=== PATIENT | male | born 1960 | race Caucasian/White ===

== ENCOUNTER 2017-02-10 01:24 | Emergency (ER) | payer MEDICARE, OTHER ==
[2017-02-10 02:17] LABS: HEMOGLOBIN 14.2 gm/dl (14.0-17.5); RED BLOOD COUNT 5.03 M/UL (4.20-5.50); WHITE BLOOD COUNT 6.5 K/UL (4.5-11.0)
[2017-02-10 02:37] LABS: BUN/CREATININE RATIO 20 (0-10)
== END 2017-02-10 06:00 | disposition home or self-care (01) ==
LOC: ER1 01:24
PROVIDERS: Family Medicine
DX: J18.9 Pneumonia, unspecified organism (principal); J44.9 Chronic obstructive pulmonary disease, unspecified; E11.9 Type 2 diabetes mellitus without complications; E78.5 Hyperlipidemia, unspecified; M10.9 Gout, unspecified; R60.9 Edema, unspecified; R50.9 Fever, unspecified
CPT/HCPCS: 36415; 71010; 80053; 81001; 82550; 82553; 83874; 84484; 85025; 87040; 87070; 87077; 87086; 87205; 93005; 94664; 96374; 99285; J0696; J2930; J7050

== ENCOUNTER 2017-02-28 00:06 | Emergency (ER) | payer MEDICARE, OTHER | END 2017-02-28 07:20 | disposition home or self-care (01) | LOC: ER1 00:06 | DX: S13.4XXA Sprain of ligaments of cervical spine, initial encounter (principal); S86.812A Strain of other muscle(s) and tendon(s) at lower leg level, left leg, initial encounter; S86.811A Strain of other muscle(s) and tendon(s) at lower leg level, right leg, initial encounter; S40.022A Contusion of left upper arm, initial encounter; S40.021A Contusion of right upper arm, initial encounter; W20.8XXA Other cause of strike by thrown, projected or falling object, initial encounter; Y92.69 Other specified industrial and construction area as the place of occurrence of the external cause; Y99.0 Civilian activity done for income or pay | CPT/HCPCS: 36415; 72125; 73060; 73080; 73564; 99284 ==

== ENCOUNTER 2017-03-31 21:55 | Emergency (ER) | payer MEDICARE, OTHER ==
[2017-04-01 02:21] LABS: HEMOGLOBIN 13.4 gm/dl (14.0-17.5); RED BLOOD COUNT 4.67 M/UL (4.20-5.50); WHITE BLOOD COUNT 11.4 K/UL (4.5-11.0)
[2017-04-01 02:51] LABS: BUN/CREATININE RATIO 19 (0-10)
== END 2017-04-01 04:20 | disposition home or self-care (01) ==
LOC: ER1 21:55
PROVIDERS: Family Medicine
DX: M19.032 Primary osteoarthritis, left wrist (principal); E11.9 Type 2 diabetes mellitus without complications; I10 Essential (primary) hypertension; M10.9 Gout, unspecified; Z85.038 Personal history of other malignant neoplasm of large intestine
CPT/HCPCS: 36415; 73090; 73110; 80053; 84550; 85025; 86140; 99283

== ENCOUNTER 2020-11-08 14:12 | Inpatient (IN) | payer MEDICARE ==
[~2020-11-08] VITALS: Ht 175.3 cm; Wt 90.7 kg
[~2020-11-08 14:12] MED LIST: ACTOS45 MG PO; ALENDRONATE SOD10 MG PO; ASPIRIN EC81 MG PO; ATORVASTATIN CA40 MG PO; BACTRIM DS TAB1 EACH PO; BUSPAR 10MG10 MG PO; CRESTOR5 MG PO; CYMBALTA 30 MG30 MG PO; CYMBALTA60 MG PO; GABAPENTIN800 MG PO; GLUCOPHAGE1000 MG PO; HUMALOG MI100 UNIT/3 SC; HYDROCODON-ACE1 EAC6 PO; IMDUR ER TAB 3030 MG PO; JANUVIA100 MG PO; K-DUR TAB 10 M10 MEQ PO; KEFLEX CAP 500500 MG PO; LANTUS100 UNIT/1 SC; LASIX20 MG PO; LASIX40 MG PO; LEXAPRO20 MG PO; LISINOPRIL10 MG PO; LISINOPRIL20 MG PO; METFORMIN HCL1000 MG PO; MIACALCIN NASA3.7 ML; MOBIC15 MG PO; NABUMETONE500 MG PO; NEURONTIN 400400 MG PO; NITROSTAT 0.40.4 MG SL; NORCO 7.5-3251 EACH PO; NORVASC5 MG PO; OMEPRAZOLE20 M1 PO; OZEMPIC0.25 MG/0. SQ; PRAVACHOL40 MG PO; PREDNISONE20 MG PO; PREVACID30 MG PO; PRILOSEC OTC20 MG PO; REVATIO 20 MG T20 MG PO; TESSALON PERLE100 MG PO; TRAZODONE HCL50 MG PO; VITAMIN C500 M1 PO; VITAMIN D31250 MCG PO; XANAX0.25 MG PO; ZESTORETIC 20-1 EAC1 PO; ZESTRIL40 MG PO; ZYLOPRIM 300 M300 MG PO; [UNRECOGNIZED DRUG - OTHER] TOP
[2020-11-08 18:33] LABS: HEMOGLOBIN 13.6 gm/dl (14.0-17.5); RED BLOOD COUNT 4.6 M/UL (4.20-5.50)
[2020-11-08 19:02] LABS: BUN/CREATININE RATIO 27 (0-10)
[2020-11-08] MEDS ORDERED: OMEPRAZOLE20 M1 PO (21:15)
[2020-11-08] MEDS ORDERED: OZEMPIC 2MG/1.5ML (21:19)
[2020-11-08] MEDS ORDERED: QUETIAPINE FUMA50 MG PO (21:22)
[2020-11-08] MEDS ORDERED: PROAIR DIGIHAL90 MCG INH (21:23)
[2020-11-09] MEDS ORDERED: ATORVASTATIN CA20 MG PO (15:44)
== END 2020-11-09 19:07 | disposition home or self-care (01) | DRG 286 ==
LOC: ER1 14:12 → CDU 20:09 → MED SURG 4 20:09 → CDU 20:09 → MED SURG 4 11-09 15:56
PROVIDERS: Physician Assistant; ADMIT Internal Medicine
PROC: B211YZZ Fluoroscopy of Multiple Coronary Arteries using Other Contrast (ICD-10-PCS; principal; 2020-11-09)
PROC: 4A023N7 Measurement of Cardiac Sampling and Pressure, Left Heart, Percutaneous Approach (ICD-10-PCS; principal; 2020-11-09)
DX: I25.110 Atherosclerotic heart disease of native coronary artery with unstable angina pectoris (principal); U07.1 COVID-19; A52.16 Charcot's arthropathy (tabetic); I10 Essential (primary) hypertension; E78.5 Hyperlipidemia, unspecified; E11.9 Type 2 diabetes mellitus without complications; E66.9 Obesity, unspecified; J44.9 Chronic obstructive pulmonary disease, unspecified; M81.0 Age-related osteoporosis without current pathological fracture; I48.0 Paroxysmal atrial fibrillation; Z96.652 Presence of left artificial knee joint; G62.9 Polyneuropathy, unspecified; M10.9 Gout, unspecified; M19.90 Unspecified osteoarthritis, unspecified site; G25.81 Restless legs syndrome; Z79.4 Long term (current) use of insulin; Z79.899 Other long term (current) drug therapy; Z86.73 Personal history of transient ischemic attack (TIA), and cerebral infarction without residual deficits; Z90.49 Acquired absence of other specified parts of digestive tract; Z85.038 Personal history of other malignant neoplasm of large intestine; Z87.891 Personal history of nicotine dependence
CPT/HCPCS: 71045; 80053; 81001; 82550; 82553; 82962; 83874; 84484; 85025; 87086; 87635; 93005; 94760; 99152; 99285; C1769; C1894; G0378; J1644; J2250; J3010; Q9967; U0003

== ENCOUNTER 2020-12-01 15:51 | Emergency (ER) | payer MEDICARE, OTHER ==
[~2020-12-01 15:51] MED LIST changes: +ATORVASTATIN CA20 MG PO; +OZEMPIC 2MG/1.5ML; +PROAIR DIGIHAL90 MCG INH; +QUETIAPINE FUMA50 MG PO
[2020-12-01] MEDS ORDERED: NORFLEX 100 MG100 MG PO (19:42)
[2020-12-01] MEDS ORDERED: VOLTAREN100 GM TP (19:42)
== END 2020-12-01 19:45 | disposition home or self-care (01) ==
LOC: ER1 15:51
DX: S39.012A Strain of muscle, fascia and tendon of lower back, initial encounter (principal); G89.29 Other chronic pain; M51.36 Other intervertebral disc degeneration, lumbar region; M51.26 Other intervertebral disc displacement, lumbar region; M48.061 Spinal stenosis, lumbar region without neurogenic claudication; I10 Essential (primary) hypertension; E11.9 Type 2 diabetes mellitus without complications; Z85.038 Personal history of other malignant neoplasm of large intestine; Z90.49 Acquired absence of other specified parts of digestive tract; X50.9XXA Other and unspecified overexertion or strenuous movements or postures, initial encounter
CPT/HCPCS: 72131; 96372; 99283; J1885; J2930

== ENCOUNTER 2020-12-30 07:10 | Emergency (ER) | payer MEDICARE, OTHER ==
[~2020-12-30 07:10] MED LIST changes: +NORFLEX 100 MG100 MG PO; +VOLTAREN100 GM TP
[2020-12-30] MEDS ORDERED: HYDROCODON-ACE1 EAC4 PO (10:28)
== END 2020-12-30 11:10 | disposition home or self-care (01) ==
LOC: ER1 07:10
DX: S13.4XXA Sprain of ligaments of cervical spine, initial encounter (principal); E04.1 Nontoxic single thyroid nodule; F17.200 Nicotine dependence, unspecified, uncomplicated; Z90.49 Acquired absence of other specified parts of digestive tract; W00.0XXA Fall on same level due to ice and snow, initial encounter
CPT/HCPCS: 29105; 71046; 72125; 73030; 73080; 73110; 99284

== ENCOUNTER → 2021-01-09 | Outpatient (CLI) | payer MEDICARE, OTHER ==
[~2021-01-09] MED LIST changes: +CLEOCIN HCL300 MG PO; +ENDOCET 10-3251 EACH PO; +HYDROCODON-ACE1 EAC4 PO; +PERCOCET 5/325 T1 EA PO
== END ==
LOC: KOH-I 15:59
DX: M14.671 Charcot's joint, right ankle and foot (principal); M14.672 Charcot's joint, left ankle and foot; M19.072 Primary osteoarthritis, left ankle and foot; M19.071 Primary osteoarthritis, right ankle and foot
CPT/HCPCS: 73610; 73630

== ENCOUNTER → 2021-01-17 | Outpatient (CLI) | payer MEDICARE, OTHER | LOC: KOH-I 10:06 | DX: Z01.818 Encounter for other preprocedural examination (principal) | CPT/HCPCS: 93925 ==

== ENCOUNTER → 2021-01-18 | Outpatient (CLI) | payer MEDICARE, OTHER | LOC: OPSV2 10:30 | DX: Z01.812 Encounter for preprocedural laboratory examination (principal); U07.1 COVID-19 ==

== ENCOUNTER 2021-01-20 07:35 | Day surgery (SDC) | payer MEDICARE, OTHER ==
[~2021-01-20] VITALS: Ht 175.3 cm; Wt 90.7 kg
[~2021-01-20 07:35] MED LIST changes: -CLEOCIN HCL300 MG PO; -ENDOCET 10-3251 EACH PO; -PERCOCET 5/325 T1 EA PO
[2021-01-20 08:27] LABS: RED BLOOD COUNT 4.97 M/UL (4.20-5.50); WHITE BLOOD COUNT 6.4 K/UL (4.5-11.0)
[2021-01-20 08:43] LABS: BUN/CREATININE RATIO 14 (0-10)
[2021-01-21] MEDS ORDERED: PERCOCET 5/325 T1 EA PO (10:06)
[2021-01-21] MEDS ORDERED: ENDOCET 10-3251 EACH PO (10:08)
[2021-01-21] MEDS ORDERED: CLEOCIN HCL300 MG PO (10:13)
== END 2021-01-21 18:02 | disposition home or self-care (01) ==
LOC: OR 07:35 → MED SURG 4 07:35 → OR 07:45 → MED SURG 4 17:31 → OR 01-21 18:02
PROVIDERS: Podiatrist Foot & Ankle Surgery
DX: M20.41 Other hammer toe(s) (acquired), right foot (principal); E11.610 Type 2 diabetes mellitus with diabetic neuropathic arthropathy; E11.621 Type 2 diabetes mellitus with foot ulcer; I25.10 Atherosclerotic heart disease of native coronary artery without angina pectoris; K21.9 Gastro-esophageal reflux disease without esophagitis; G89.4 Chronic pain syndrome; F41.9 Anxiety disorder, unspecified; F17.210 Nicotine dependence, cigarettes, uncomplicated; I10 Essential (primary) hypertension; J44.9 Chronic obstructive pulmonary disease, unspecified; U07.1 COVID-19; E78.5 Hyperlipidemia, unspecified; Z90.49 Acquired absence of other specified parts of digestive tract; Z79.899 Other long term (current) drug therapy; Z83.6 Family history of other diseases of the respiratory system; Z80.0 Family history of malignant neoplasm of digestive organs
CPT/HCPCS: 36415; 73620; 73630; 76000; 80048; 82962; 85027; C1713; C1769; J0690; J1885; J2001; J2270; J2405; J2704; J2710; J2795; J3010; J3370; J7120; Q4133

== ENCOUNTER → 2021-01-30 | Outpatient (CLI) | payer MEDICARE, OTHER ==
[~2021-01-30] VITALS: Ht 175.3 cm; Wt 95.3 kg
[~2021-01-30] MED LIST changes: +CLEOCIN HCL300 MG PO; +ENDOCET 10-3251 EACH PO; +PERCOCET 5/325 T1 EA PO
== END ==
LOC: OPSV 07:00
DX: M86.9 Osteomyelitis, unspecified (principal)
CPT/HCPCS: 96365; 96366; J2407; J7070

== ENCOUNTER 2021-02-21 21:25 | Emergency (ER) | payer MEDICARE, OTHER | END 2021-02-21 22:45 | disposition home or self-care (01) | LOC: ER1 21:25 | DX: T85.830A Hemorrhage due to nervous system prosthetic devices, implants and grafts, initial encounter (principal); E11.9 Type 2 diabetes mellitus without complications; I10 Essential (primary) hypertension; F17.210 Nicotine dependence, cigarettes, uncomplicated | CPT/HCPCS: 99283 ==

== ENCOUNTER → 2021-02-21 | Outpatient (CLI) | payer MEDICARE, OTHER ==
[~2021-02-21] VITALS: Ht 175.3 cm; Wt 95.3 kg
[2021-02-21 09:23] LABS: HEMOGLOBIN 13.9 gm/dl (14.0-17.5); RED BLOOD COUNT 4.76 M/UL (4.20-5.50); WHITE BLOOD COUNT 6.1 K/UL (4.5-11.0)
[2021-02-21 09:45] LABS: BUN/CREATININE RATIO 18 (0-10)
== END ==
LOC: OPSV 08:00
PROVIDERS: Podiatrist Foot & Ankle Surgery
DX: Z45.2 Encounter for adjustment and management of vascular access device (principal); L97.522 Non-pressure chronic ulcer of other part of left foot with fat layer exposed; Z79.2 Long term (current) use of antibiotics
CPT/HCPCS: 36415; 80053; 85027; 85652; 86140; 96365; 96366; J3370; J7070

== ENCOUNTER → 2021-02-21 | Outpatient (CLI) | payer MEDICARE, OTHER | LOC: KOH-I 13:57 | DX: Z47.89 Encounter for other orthopedic aftercare (principal); Z98.890 Other specified postprocedural states | CPT/HCPCS: 73630 ==

== ENCOUNTER → 2021-03-01 | Outpatient (CLI) | payer MEDICARE, OTHER ==
[~2021-03-01] VITALS: Ht 175.3 cm; Wt 95.3 kg
[2021-03-01 08:15] LABS: HEMOGLOBIN 14.7 gm/dl (14.0-17.5); RED BLOOD COUNT 5.01 M/UL (4.20-5.50); WHITE BLOOD COUNT 8.2 K/UL (4.5-11.0)
[2021-03-01 08:44] LABS: BUN/CREATININE RATIO 25 (0-10)
== END ==
LOC: OPSV 07:32
PROVIDERS: Podiatrist Foot & Ankle Surgery
DX: H66.90 Otitis media, unspecified, unspecified ear (principal)
CPT/HCPCS: 80053; 85027; 85652; 86140; 96365; 96366; J3370; J7070

== ENCOUNTER 2021-03-03 23:10 | Emergency (ER) | payer MEDICARE, OTHER | END 2021-03-04 02:46 | disposition home or self-care (01) | LOC: ER1 23:10 | DX: T82.898A Other specified complication of vascular prosthetic devices, implants and grafts, initial encounter (principal); E11.9 Type 2 diabetes mellitus without complications; F17.210 Nicotine dependence, cigarettes, uncomplicated | CPT/HCPCS: 96374; 96375; 99283; J1642; J2997 ==

== ENCOUNTER → 2021-03-13 | Outpatient (CLI) | payer MEDICARE, OTHER | LOC: KOH-I 08:42 | DX: Z47.89 Encounter for other orthopedic aftercare (principal); Z98.1 Arthrodesis status | CPT/HCPCS: 73630 ==

== ENCOUNTER → 2021-04-06 | Outpatient (CLI) | payer MEDICARE, OTHER | LOC: KOH-I 10:09 | DX: M14.60 Charcot's joint, unspecified site (principal) | CPT/HCPCS: 73630 ==

== ENCOUNTER → 2021-04-27 | Outpatient (CLI) | payer MEDICARE, OTHER | LOC: KOH-I 11:32 | DX: M14.671 Charcot's joint, right ankle and foot (principal); M19.071 Primary osteoarthritis, right ankle and foot | CPT/HCPCS: 73630 ==

== ENCOUNTER 2021-12-17 16:12 | Emergency (ER) | payer MEDICARE, OTHER | END 2021-12-17 17:44 | disposition left against medical advice (07) | LOC: ER1 16:12 | DX: Z53.21 Procedure and treatment not carried out due to patient leaving prior to being seen by health care provider (principal) ==

== ENCOUNTER → 2022-01-16 | Outpatient (CLI) | payer MEDICARE, OTHER | LOC: KOH-I 14:21 | DX: M79.672 Pain in left foot (principal); M79.671 Pain in right foot; M19.072 Primary osteoarthritis, left ankle and foot; M19.071 Primary osteoarthritis, right ankle and foot | CPT/HCPCS: 73630 ==

== ENCOUNTER → 2022-01-25 | Outpatient (CLI) | payer MEDICARE, OTHER | LOC: KOH-I 13:59 | DX: M19.011 Primary osteoarthritis, right shoulder (principal); M19.012 Primary osteoarthritis, left shoulder; M47.816 Spondylosis without myelopathy or radiculopathy, lumbar region; M47.814 Spondylosis without myelopathy or radiculopathy, thoracic region | CPT/HCPCS: 72070; 72100; 73030; 73562 ==

== ENCOUNTER 2022-07-04 16:57 | Emergency (ER) | payer OTHER, MEDICARE ==
[2022-07-04] MEDS ORDERED: NAPROXEN500 MG PO (23:26)
[2022-07-04] MEDS ORDERED: NORFLEX 100 MG100 MG PO (23:26)
== END 2022-07-04 23:40 | disposition home or self-care (01) ==
LOC: ER1 16:57
DX: S16.1XXA Strain of muscle, fascia and tendon at neck level, initial encounter (principal); R51.9 Headache, unspecified; R07.9 Chest pain, unspecified; M25.552 Pain in left hip; M25.522 Pain in left elbow; R40.2410 Glasgow coma scale score 13-15, unspecified time; V89.2XXA Person injured in unspecified motor-vehicle accident, traffic, initial encounter; Y92.410 Unspecified street and highway as the place of occurrence of the external cause
CPT/HCPCS: 71045; 72100; 72125; 73502; 99284